=== PATIENT | male | born 1985 | race Caucasian/White ===

== ENCOUNTER 2016-08-18 20:10 | Emergency (ER) | payer OTHER ==
[~2016-08-18] VITALS: Ht 182.9 cm; Wt 88.0 kg
[~2016-08-18 20:10] MED LIST: CITA10TA4 PO; DICL50TA3 PO; OLAN2.5T PO
[2016-08-18 20:16] VITALS: BP 111/78; PULSE 88; RESP 18; TEMP 98.1; O2SAT 95
[2016-08-18 20:23] VITALS: BP 111/78; PULSE 88; RESP 16; TEMP 98.1; O2SAT 96
[2016-08-18] MEDS ORDERED: TRAM50TA PO (20:40)
[2016-08-18] MEDS ORDERED: [UNRECOGNIZED DRUG - CODE] TOPICAL (20:40)
--- NOTE | 2016-08-18 20:40 | PD ---
HPI Chief Complaint: Skin Problem Time Seen by Provider: 20:31 Travel History International Travel<30 days: No Contact w/Intl Traveler<30days: No Traveled to known affect area: No History of Present Illness HPI Patient is a 31-year-old male who presents to emergency room with complaints of pains to his feet for the past 10 years. Patient reports that he has seen a account receivable clerk for his foot pains and multiple calluses to his foot and reports that he was told that his symptoms were nerve related and non operative in nature. Reports that he does alot of standing at work and reports that he had to leave work early today. Reports that he was told that if he left work early, he needed a doctors note. Patient reports "I am here because I think I have a fungal infection in my foot and I need a doctor's note." Patient reports that he has been follow-up with a account receivable clerk, reports that he has been using shoes as well as insoles recommended by the account receivable clerk. Patient reports that nothing really helps for his pain which is chronic in nature. Patient denies any new traumas or injuries to his foot. Patient with no other complaints. PFSH Past Medical History Bipolar Disorder: Yes ("EXTREME") Anxiety: Yes Depression: Yes Heart Rhythm Problems: No Cancer: No Cardiovascular Problems: Yes High Cholesterol: No Chest Pain: No Congestive Heart Failure: No Diminished Hearing: No Endocrine: No Genitourinary: No Hypertension: Yes Immune Disorder: No Musculoskeletal: No Neurologic: Yes (TOURETTES) Psychiatric: Yes Reproductive: No Respiratory: No Immunizations Current: Yes Schizophrenia: Yes Tetanus Vaccination: < 5 Years Influenza Vaccination: No Past Surgical History Tympanostomy Tube: Yes Other Surgery: No Social History Alcohol Use: Yes (SOCIALLY) Tobacco Use: Yes (1 PPD) Substance Use: Yes ( MARIJUANA OCCASIONALLY) Allergies-Medications (Allergen,Severity, Reaction): Coded Allergies: Penicillin (Verified Allergy, Severe, UNKNOWN, 12/13/15) Reported Meds & Prescriptions Reported Meds & Active Scripts Active Athletes Foot Topical (Tolnaftate) 1 % Aer 1 [place] TOPICAL BID Tramadol (Tramadol HCl) 50 Mg Tab 50 Mg PO Q6H PRN Review of Systems General / Constitutional: No: Fever Eyes: No: Visual changes HENT: No: Headaches Cardiovascular: No: Chest Pain or Discomfort Respiratory: No: Shortness of Breath Gastrointestinal: No: Abdominal Pain Genitourinary: No: Dysuria Musculoskeletal: Positive: Pain (to bilateral feet) Skin: No Rash Neurologic: No: Weakness Psychiatric: No: Depression Endocrine: No: Polydipsia Hematologic/Lymphatic: No: Easy Bruising Physical Exam Narrative GENERAL: Well-nourished, well-developed patient. SKIN: Warm and dry. HEAD: Normocephalic. EYES: No scleral icterus. No injection or drainage. NECK: Supple, trachea midline. No JVD or lymphadenopathy. CARDIOVASCULAR: Regular rate and rhythm without murmurs, gallops, or rubs. RESPIRATORY: Breath sounds equal bilaterally. No accessory muscle use. GASTROINTESTINAL: Abdomen soft, non-tender, nondistended. MUSCULOSKELETAL: No cyanosis, or edema. Patient with what appears to be fungal infection to bilateral feet, patient with no erythema or edema or signs of infection, pulses intact, neurovascularly intact. Patient with multiple calluses on his feet as well. BACK: Nontender without obvious deformity. No CVA tenderness. Data Data Last Documented VS Vital Signs Date Time Temp Pulse Resp B/P Pulse Ox O2 Delivery O2 Flow Rate FiO2 08/18/16 20:24 16 08/18/16 20:23 98.1 88 111/78 96 [facility] Medical Decision Making Medical Screen Exam Complete: Yes Emergency Medical Condition: Yes Interpretation(s) Vital Signs Date Time Temp Pulse Resp B/P Pulse Ox O2 Delivery O2 Flow Rate FiO2 08/18/16 20:24 16 08/18/16 20:23 98.1 88 16 111/78 96 08/18/16 20:16 98.1 88 18 111/78 95 Differential Diagnosis Athlete's foot secondary to fungal infection, chronic foot pain, foot calluses. Narrative Course Patient is a 31-year-old male who presents to emergency room with complaints of pains to his feet for the past 10 years. Patient reports that he has seen a account receivable clerk for his foot pains and multiple calluses to his foot and reports that he was told that his symptoms were nerve related and non operative in nature. Reports that he does alot of standing at work and reports that he had to leave work early today. Reports that he was told that if he left work early, he needed a doctors note. Patient reports "I am here because I think I have a fungal infection in my foot and I need a doctor's note." Patient reports that he has been follow-up with a account receivable clerk, reports that he has been using shoes as well as insoles recommended by the account receivable clerk. Patient reports that nothing really helps for his pain which is chronic in nature. Patient denies any new traumas or injuries to his foot. Patient with no other complaints. Patient reports that his bilateral foot pains are chronic in nature, no workup will be initiated emergency room as patient reports no recent traumas or injuries to his feet. Patient does report he is here for a work note as he left work early today because of bilateral foot pain which has been ongoing for the past 10 years. Patient suffers no medical emergency at this time. Patient with chronic pains to his feet bilaterally, patient here for work note. Will give patient a work note. Patient also with athlete's foot, will prescribe topical cream Patient will follow up with his account receivable clerk and return to ER as needed Diagnosis Primary Impression: Athlete's foot Qualified Code: B35.3 - Tinea pedis of both feet Additional Impression: Chronic foot pain Qualified Code: M79.673 - Chronic foot pain, unspecified laterality Patient Instructions: General Instructions Departure Forms: Tests/Procedures, Work Release Enter return to work date: Aug 20, 2016 Med/Other Pt SpecificInfo: Prescription(s) given Scripts Tolnaftate Topical (Athletes Foot Topical)1 % Aer1 [place] TOPICAL BID #1 CAN Ref 0 Prov:Divina Jiménez DO 08/18/16 Tramadol 50 Mg Tab50 Mg PO Q6H PRN (PAIN) #10 TAB Ref 0 Prov:Divina Jiménez DO 08/18/16 Disposition: 01 DISCHARGE HOME Condition: Stable Divina Jiménez DO Aug 18, 2016 20:40
== END 2016-08-18 21:04 | disposition home or self-care (01) ==
LOC: PHEFT 20:10
DX: B35.3 Tinea pedis (principal); L84 Corns and callosities; F17.210 Nicotine dependence, cigarettes, uncomplicated
CPT/HCPCS: 99283

== ENCOUNTER 2017-04-22 17:17 | Emergency (ER) | payer OTHER ==
[~2017-04-22] VITALS: Ht 182.9 cm; Wt 116.0 kg
[~2017-04-22 17:17] MED LIST changes: -CITA10TA4 PO; -DICL50TA3 PO; -OLAN2.5T PO; +TRAM50TA PO; +[UNRECOGNIZED DRUG - CODE] TOPICAL
[2017-04-22 17:32] VITALS: BP 148/87; PULSE 69; PULSE 78; RESP 16; RESP 17; TEMP 97.8; O2SAT 99
[2017-04-22] MEDS ORDERED: HALO5TAB PO (17:36)
[2017-04-22] MEDS ORDERED: SODIUM CHLOR 0.9% 1000 ML INJ 1,000 ML IV SCH (17:40)
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
[2017-04-22 17:43] VITALS: RESP 17; O2SAT 99
[2017-04-22] MEDS ORDERED: DIPHTH/TETANUS/ACEL PERTUSSIS (BOOSTER) 0.5 ML VIAL/PFS IM ONE (17:45)
[2017-04-22] MEDS ORDERED: MORPHINE SULFATE 4 MG/ML INJ IV PUSH ONE (17:45)
[2017-04-22] MEDS ORDERED: ONDANSETRON HCL 4 MG/2 ML VIAL IV PUSH ONE (17:45)
[2017-04-22] MEDS ORDERED: SODIUM CHLORIDE 0.9% FLUSH 10 ML FLUSH IVF PRN (17:45)
[2017-04-22 18:20] LABS: AUTOMATED NEUTROPHIL # 3.4 TH/MM3 (1.8-7.7); BASOPHIL % 0.6 % (0.0-2.0); EOSINOPHIL # 0.2 TH/MM3 (0-0.4); EOSINOPHIL % 2.8 % (0.0-4.0); HEMO FLAGS DIFF FINAL; LYMPH % 34.2 % (9.0-44.0); LYMPHOCYTE # 2.1 TH/MM3 (1.0-4.8); MEAN CELL VOLUME 97.3 FL (80.0-100.0); MEAN CORPUSCULAR HEMOGLOBIN 33.8 PG (27.0-34.0); MEAN CORPUSCULAR HGB CONC 34.8 % (32.0-36.0); NEUT % 55.4 % (16.0-70.0); PLATELET COUNT 204 TH/MM3 (150-450); RED BLOOD COUNT 4.52 MIL/MM3 (4.50-5.90); RED CELL DISTRIBUTION WIDTH 13.1 % (11.6-17.2); WHITE BLOOD COUNT 6.2 TH/MM3 (4.0-11.0)
[2017-04-22 18:31] LABS: APTT (PATIENT) 27.5 SEC (24.3-30.1); PROTHROMBIN TIME - PATIENT 10.5 SEC (9.8-11.6)
[2017-04-22 18:34] LABS: BICARBONATE 26.9 MEQ/L (21.0-32.0); POTASSIUM 4.2 MEQ/L (3.5-5.1)
[2017-04-22 19:00] VITALS: BP 136/84; PULSE 76; RESP 17; TEMP 97.9; O2SAT 99
[2017-04-22 19:05] VITALS: RESP 17; TEMP 97.8; O2SAT 99
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
[2017-04-22] MEDS ORDERED: IOHEXOL 350 MG/ML 10 ML VIAL (for RAD DIAG) IVCONTRAST ONE (20:28)
[2017-04-22 21:00] VITALS: BP 124/85; PULSE 68; RESP 16; TEMP 97.8; O2SAT 99
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
[2017-04-22] MEDS ORDERED: IBUP-1129 PO (21:54)
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
[2017-04-22 22:10] VITALS: BP 122/78; TEMP 97.8
== END 2017-04-22 22:15 | disposition home or self-care (01) ==
LOC: NEPE 17:17
DX: S61.411A Laceration without foreign body of right hand, initial encounter (principal); S01.112A Laceration without foreign body of left eyelid and periocular area, initial encounter; S30.811A Abrasion of abdominal wall, initial encounter; S80.211A Abrasion, right knee, initial encounter; V89.2XXA Person injured in unspecified motor-vehicle accident, traffic, initial encounter; Y92.411 Interstate highway as the place of occurrence of the external cause; Z23 Encounter for immunization
CPT/HCPCS: 12011; 70450; 70486; 71260; 72125; 73130; 74177; 80048; 85025; 85610; 85730; 86850; 86900; 86901; 90471; 90715; 96361; 96374; 96375; 99285; J2270; J2405; J7030; L0150; Q9967; 96372

== ENCOUNTER 2017-04-26 21:10 | Emergency (ER) | payer OTHER ==
[~2017-04-26] VITALS: Ht 180.3 cm; Wt 98.9 kg
[~2017-04-26 21:10] MED LIST changes: +HALO5TAB PO; +IBUP-1129 PO
[2017-04-26 21:12] VITALS: BP 130/78; PULSE 94; RESP 18; TEMP 97.8; O2SAT 97
[2017-04-26] MEDS ORDERED: CITA20TA4 PO (21:37)
[2017-04-26] MEDS ORDERED: OLAN5TAB PO (21:37)
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
[2017-04-26] MEDS ORDERED: HYDR-4107 PO (23:35)
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
[2017-04-26] MEDS ORDERED: IBUPROFEN 600 MG TAB PO ONE (23:45)
[2017-04-26 23:54] VITALS: BP 128/78
== END 2017-04-26 23:57 | disposition home or self-care (01) ==
LOC: PHEFT 21:10
DX: S20.211A Contusion of right front wall of thorax, initial encounter (principal); V89.2XXA Person injured in unspecified motor-vehicle accident, traffic, initial encounter
CPT/HCPCS: 71010; 99283

== ENCOUNTER 2017-05-05 01:51 | Emergency (ER) | payer OTHER ==
[~2017-05-05] VITALS: Ht 180.3 cm; Wt 100.7 kg
[~2017-05-05 01:51] MED LIST changes: +CITA20TA4 PO; +HYDR-4107 PO; -IBUP-1129 PO; +OLAN5TAB PO; -TRAM50TA PO; -[UNRECOGNIZED DRUG - CODE] TOPICAL
[2017-05-05 01:53] VITALS: BP 117/82; PULSE 108; RESP 16; TEMP 98.8; O2SAT 96
[2017-05-05] MEDS ORDERED: IBUP-1129 (02:27)
[2017-05-05] MEDS ORDERED: SUBO8MIS SL (02:27)
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
[2017-05-05 03:01] VITALS: BP 120/75; PULSE 95; RESP 16; TEMP 98.7; O2SAT 100
== END 2017-05-05 03:02 | disposition home or self-care (01) ==
LOC: PHED 01:51
DX: S20.211D Contusion of right front wall of thorax, subsequent encounter (principal); V89.2XXD Person injured in unspecified motor-vehicle accident, traffic, subsequent encounter
CPT/HCPCS: 99281